=== PATIENT | male | born 1995 | race Caucasian/White ===

== ENCOUNTER 2021-03-11 19:25 | Emergency (ER) | payer SELFPAY ==
[2021-03-11 19:50] VITALS: BP 116/73; PULSE 87; TEMP 98.2; BMI 29.2
[2021-03-11 21:43] LABS: BASO % 0.5 % (0-2.0); EOS % 0.5 % (0-4.5); HEMATOCRIT 44.9 % (35.4-49); HEMOGLOBIN 15.5 GM/dL (11.7-16.9); LYMPH % 17.7 % (8-40); MCH 30.4 pg (25.7-33.7); MCHC 34.6 g/dl (32.0-35.9); MEAN CELL VOLUME 87.9 fl (80-96); MEAN PLT VOLUME 7.7 fl (7.5-11.1); MONO % 10.8 % (3.8-10.2); NEUT % 70.5 % (42.8-82.8); PLATELET COUNT 241 10^3/uL (134-434); RDW 13.7 % (11.9-15.9); WHITE BLOOD COUNT 7.6 K/mm3 (4.0-10.0)
[2021-03-11 22:00] LABS: CHLORIDE 103 mmol/L (98-107); SODIUM 138 mmol/L (136-145)
[2021-03-11 22:03] LABS: BLOOD UREA NITROGEN 14.2 mg/dL (7-18); CALCIUM 8.6 mg/dL (8.5-10.1)
[2021-03-11 22:04] LABS: ALBUMIN 4.2 g/dl (3.4-5.0); ANION GAP 11 MMOL/L (8-16); CO2 24 mmol/L (21-32); GLUCOSE,RANDOM 98 mg/dL (74-106)
[2021-03-11 22:05] LABS: CREATININE 0.9 mg/dL (0.55-1.3)
[2021-03-11 22:07] LABS: SGOT/AST 21 U/L (15-37); SGPT/ALT 37 U/L (13-61)
[2021-03-11 22:08] LABS: BILIRUBIN,TOTAL 0.7 mg/dL (0.2-1)
[2021-03-11 22:09] LABS: ALK PHOS 79 U/L (45-117)
== END 2021-03-11 22:32 | disposition home or self-care (01) ==
LOC: JER 19:25
DX: M94.0 Chondrocostal junction syndrome [Tietze] (principal); R07.9 Chest pain, unspecified
CPT/HCPCS: 36415; 71046-TC-FY; 80053; 84484; 85025; 93005; 93010; 99285-25

== ENCOUNTER 2021-05-06 23:54 | Emergency (ER) | payer OTHER ==
[2021-05-07 00:09] VITALS: BP 119/74; PULSE 90; TEMP 98.1; BMI 26.5
[2021-05-07] MEDS ORDERED: IBUPROFEN 400 MG TABLET (FP) PO ONE ×2 (01:21→02:14)
[2021-05-07] MEDS ORDERED: SODIUM CHLORIDE 1,000 ML IV STA (01:49)
[2021-05-07] MEDS ORDERED: FAMOTIDINE 20 MG/50 ML IVPB 20 MG/50 ML MG IVPB ONE ×2 (01:49→02:14)
[2021-05-07] MEDS ORDERED: MAG HYDROX/AL HYDROX/SIMETH 30 ML UNIT-DOSE CUP PO ONE (01:49)
[2021-05-07] MEDS ORDERED: ACETAMINOPHEN 500 MG TABLET (FP) PO ONE (01:49)
[2021-05-07] MEDS ORDERED: ACETAMINOPHEN 325 MG TABLET (FP) ONE (02:13)
[2021-05-07] MEDS ORDERED: MAG HYDROX/AL HYDROX/SIMETH 30 ML UNIT-DOSE CUP ONE (02:14)
[2021-05-07] MEDS ORDERED: NAPH,MB-DB/K PH,MBDB POWDER PACKET ONE (02:15)
[2021-05-07] MEDS ORDERED: PT OWN MED DRAWER 7, Y5N ONE (02:15)
[2021-05-07 03:04] LABS: BASO % 0.5 % (0-2.0); HEMATOCRIT 43.3 % (35.4-49); HEMOGLOBIN 14.9 GM/dL (11.7-16.9); LYMPH % 20.2 % (8-40); MCH 30.1 pg (25.7-33.7); MCHC 34.4 g/dl (32.0-35.9); MEAN CELL VOLUME 87.5 fl (80-96); MEAN PLT VOLUME 7.8 fl (7.5-11.1); MONO % 8.8 % (3.8-10.2); NEUT % 69.5 % (42.8-82.8); PLATELET COUNT 261 10^3/uL (134-434); RBC 4.94 M/mm3 (4.00-5.60); RDW 13.3 % (11.9-15.9); WHITE BLOOD COUNT 7.7 K/mm3 (4.0-10.0)
[2021-05-07 03:13] LABS: CALCIUM 8.6 mg/dL (8.5-10.1)
[2021-05-07 03:14] LABS: BLOOD UREA NITROGEN 17.7 mg/dL (7-18); MAGNESIUM 2.3 mg/dL (1.8-2.4)
[2021-05-07 03:16] LABS: PHOSPHOROUS 4.3 mg/dL (2.5-4.9)
[2021-05-07 03:17] LABS: CREATININE 0.7 mg/dL (0.55-1.3)
[2021-05-07 03:18] LABS: BILIRUBIN,TOTAL 0.7 mg/dL (0.2-1); TOT PROT 7.7 g/dl (6.4-8.2)
== END 2021-05-07 04:11 | disposition home or self-care (01) ==
LOC: JER 23:54
PROC: 3E033GC Introduction of Other Therapeutic Substance into Peripheral Vein, Percutaneous Approach (ICD-10-PCS; principal; 2021-05-06)
DX: R07.9 Chest pain, unspecified (principal)
CPT/HCPCS: 36415; 71046-TC-FY; 80053; 83690; 83735; 84100; 85025; 93005; 93010; 96365; 99285-25

== ENCOUNTER 2021-06-17 18:18 | Emergency (ER) | payer OTHER ==
[2021-06-17 18:36] VITALS: TEMP 97; BMI 28.3
[2021-06-17] MEDS ORDERED: FAMOTIDINE 10 MG TABLET PO ONE (21:52)
[2021-06-17] MEDS ORDERED: MAG HYDROX/AL HYDROX/SIMETH 30 ML UNIT-DOSE CUP PO ONE (21:52)
[2021-06-17] MEDS ORDERED: FAMOTIDINE 10 MG TABLET ONE (22:01)
[2021-06-17] MEDS ORDERED: MAG HYDROX/AL HYDROX/SIMETH 30 ML UNIT-DOSE CUP ONE (22:02)
[2021-06-17 22:35] LABS: BASO % 0.5 % (0-2.0); EOS % 1.6 % (0-4.5); HEMATOCRIT 45.3 % (35.4-49); HEMOGLOBIN 15.6 GM/dL (11.7-16.9); LYMPH % 34.5 % (8-40); MCH 30.5 pg (25.7-33.7); MCHC 34.5 g/dl (32.0-35.9); MEAN CELL VOLUME 88.4 fl (80-96); MEAN PLT VOLUME 7.8 fl (7.5-11.1); MONO % 9.3 % (3.8-10.2); NEUT % 54.1 % (42.8-82.8); PLATELET COUNT 281 10^3/uL (134-434); RBC 5.12 M/mm3 (4.00-5.60); RDW 13.5 % (11.9-15.9); WHITE BLOOD COUNT 7.4 K/mm3 (4.0-10.0)
[2021-06-17 22:56] LABS: CALCIUM 9.4 mg/dL (8.5-10.1); CHLORIDE 103 mmol/L (98-107); SODIUM 138 mmol/L (136-145)
[2021-06-17 22:57] LABS: ALBUMIN 4.4 g/dl (3.4-5.0); ANION GAP 7 MMOL/L (8-16); BLOOD UREA NITROGEN 14.9 mg/dL (7-18); CO2 29 mmol/L (21-32); GLUCOSE,RANDOM 94 mg/dL (74-106)
[2021-06-17 23:00] LABS: CREATININE 0.9 mg/dL (0.55-1.3); SGOT/AST 17 U/L (15-37); SGPT/ALT 23 U/L (13-61)
[2021-06-17 23:02] LABS: BILIRUBIN,TOTAL 0.7 mg/dL (0.2-1); TOT PROT 8.1 g/dl (6.4-8.2)
[2021-06-17 23:03] LABS: ALK PHOS 79 U/L (45-117)
[2021-06-17 23:41] LABS: LIPASE 59 U/L (73-393)
[2021-06-18 00:36] VITALS: BP 113/67; PULSE 74
== END 2021-06-18 00:36 | disposition home or self-care (01) ==
LOC: JER 18:18
DX: R07.9 Chest pain, unspecified (principal)
CPT/HCPCS: 36415; 80053; 83690; 84484; 85025; 93005; 93010; 99284-25

== ENCOUNTER 2021-08-05 03:20 | Emergency (ER) | payer OTHER ==
[2021-08-05] MEDS ORDERED: SODIUM CHLORIDE 0.9% 500 ML INFUS.BAG IV ONE (03:38)
[2021-08-05] MEDS ORDERED: TRANEXAMIC ACID 1000 MG/10 ML VIAL IVPUSH ONE (03:40)
[2021-08-05] MEDS ORDERED: DIPHTH,PERTUSS(ACELL),TET VAC 0.5 ML VIAL IM ONE (03:40)
[2021-08-05 03:44] VITALS: BMI 28.3
[2021-08-05] MEDS ORDERED: DIPHTH,PERTUSS(ACELL),TET 0.5 ML DISP.SYRIN IM ONE ×2 (03:46→03:49)
[2021-08-05] MEDS ORDERED: TRANEXAMIC ACID 1000 MG/10 ML VIAL ONE (03:49)
[2021-08-05 04:28] LABS: ALBUMIN 3.9 g/dl (3.4-5.0); BLOOD UREA NITROGEN 17.4 mg/dL (7-18); CALCIUM 8.4 mg/dL (8.5-10.1)
[2021-08-05 04:32] LABS: CREATININE 1.1 mg/dL (0.55-1.3)
[2021-08-05 04:33] LABS: BILIRUBIN,TOTAL 0.4 mg/dL (0.2-1); TOT PROT 7.7 g/dl (6.4-8.2)
[2021-08-05 04:45] LABS: INR 0.95 (0.83-1.09); PROTHROMBIN TIME (PATIENT) 11.1 SEC (9.7-13.0)
[2021-08-05 05:10] LABS: HEMATOCRIT 45.6 % (35.4-49); HEMOGLOBIN 15.3 GM/dL (11.7-16.9); MCH 29.2 pg (25.7-33.7); MCHC 33.5 g/dl (32.0-35.9); MEAN CELL VOLUME 87.3 fl (80-96); MEAN PLT VOLUME 8.6 fl (7.5-11.1); PLATELET COUNT 246 10^3/uL (134-434); RBC 5.23 M/mm3 (4.00-5.60); RDW 13.8 % (11.9-15.9); WHITE BLOOD COUNT 6.5 K/mm3 (4.0-10.0)
[2021-08-05] MEDS ORDERED: ACETAMINOPHEN 1000 MG/100 ML BAG IVPB ONE (07:27)
[2021-08-05] MEDS ORDERED: morphine SULFATE 4 MG/ML VIAL IVPUSH ONE (07:35)
[2021-08-05] MEDS ORDERED: ACETAMINOPHEN INJECTION 100 ML IVPB ONE (07:37)
[2021-08-05] MEDS ORDERED: morphine SULFATE 4 MG/ML VIAL ONE ×2 (07:44→17:34)
[2021-08-05] MEDS ORDERED: AMPICILLIN NA/SULBACTAM NA 1.5 GM in SODIUM CHLORIDE 100 ML IVPB ONE ×2 (09:01→18:59)
[2021-08-05] MEDS ORDERED: LACTATED RINGERS SOLUTION 1,000 ML/1,000 ML INFUS.BAG IV SCH (09:45)
[2021-08-05 10:52] LABS: MAGNESIUM 2.7 mg/dL (1.8-2.4)
[2021-08-05] MEDS ORDERED: morphine CARPU-JECT 4 MG/1 ML DISP.SYRIN IVPUSH ONE (17:29)
[2021-08-05 21:31] VITALS: BP 109/69; PULSE 75; TEMP 98.7
== END 2021-08-05 20:20 | disposition short-term general hospital (02) ==
LOC: JER 03:20
PROC: 3E033GC Introduction of Other Therapeutic Substance into Peripheral Vein, Percutaneous Approach (ICD-10-PCS; principal; 2021-08-05)
PROC: 3E0234Z Introduction of Serum, Toxoid and Vaccine into Muscle, Percutaneous Approach (ICD-10-PCS; 2021-08-05)
DX: S61.411A Laceration without foreign body of right hand, initial encounter (principal); X99.1XXA Assault by knife, initial encounter
CPT/HCPCS: 36415; 70450-TC; 71045-TC-FY; 72125-TC; 72170-TC-FY; 73130-TC-RT-FY; 80053; 80307; 83690; 83735; 85025; 85610; 85730; 86850; 86900; 86901; 90471; 90715; 93005; 93010; 99285-25; C9803; U0003; U0005

== ENCOUNTER 2023-10-17 21:52 | Emergency (ER) | payer OTHER ==
[2023-10-17 22:00] VITALS: BP 117/77; PULSE 85; RESP 18; TEMP 97.5; BMI 28.0
[2023-10-17] MEDS ORDERED: LIDOCAINE 4% PATCH TP ONE (23:07)
[2023-10-17] MEDS ORDERED: IBUPROFEN 400 MG TABLET (FP) PO ONE (23:07)
[2023-10-17] MEDS: IBUPROFEN 400 MG TABLET (FP) PO ONE (23:09)
[2023-10-17] MEDS: LIDOCAINE 4% PATCH TP ONE (23:09)
[2023-10-18] MEDS ORDERED: LIDOCAINE PATCH REMOVAL MC SCH (11:00)
== END 2023-10-18 00:54 | disposition home or self-care (01) ==
LOC: JER 21:52
DX: S13.4XXA Sprain of ligaments of cervical spine, initial encounter (principal); M25.511 Pain in right shoulder; R51.9 Headache, unspecified; V43.52XA Car driver injured in collision with other type car in traffic accident, initial encounter
CPT/HCPCS: 72050-TC-FY; 73030-TC-RT-FY; 99284-25